=== PATIENT | male | born 1960 | race Caucasian/White ===

== ENCOUNTER 2020-08-19 09:25 | Outpatient (CLI) | payer OTHER ==
[~2020-08-19] VITALS: Ht 177.8 cm; Wt 102.2 kg
[2020-08-19 09:27] VITALS: BP 122/75
[2020-08-19] MEDS ORDERED: CASIRIVIMAB/IMDEVIMAB 1,200 MG in NS (IVPB) 250 ML IV ONE (09:45)
[2020-08-19] MEDS ORDERED: EPINEPHrine INJECTION 1 MG/ML AMP IM PRN (09:45)
[2020-08-19] MEDS ORDERED: diphenhydrAMINE 50 MG/ML INJ (BENADRYL) IV PRN (09:45)
[2020-08-19 10:35] VITALS: BP 133/75
== END 2020-08-19 11:15 | disposition home or self-care (01) ==
LOC: INFUSION 09:25
PROVIDERS: ATTEND Nurse Practitioner Family
DX: Z23 Encounter for immunization (principal); U07.1 COVID-19

== ENCOUNTER → 2020-11-01 | Outpatient (CLI) | payer OTHER ==
--- NOTE | 2020-11-01 12:41 | Diagnostic Imaging Report ---
INDICATION: Neck and left shoulder pain x 1 week. FINDINGS: Four views of the cervical spine were obtained which show normal height and alignment of the vertebral bodies. There is mild disc space narrowing at C4-C5 and C6-C7. There is mild disc space narrowing and spondylosis at C5-C6. There are mild degenerated facets. No fracture or other acute abnormality is seen. IMPRESSION: There are mild degenerative changes present with no acute abnormality seen. Dictated by: Dictated on workstation # [id number]
--- NOTE | 2020-11-01 12:44 | Diagnostic Imaging Report ---
INDICATION: Neck and back pain. Left arm weakness. FINDINGS: Three views of the thoracic spine show normal height and alignment of the vertebral bodies. The disc spaces are well-maintained. There is no significant spondylosis. There is no spinal canal encroachment. There is no fracture. IMPRESSION: No acute abnormality is seen. Dictated by: Dictated on workstation # [id number]
== END ==
LOC: RAD 11:54
PROVIDERS: ATTEND Family Medicine
DX: M47.892 Other spondylosis, cervical region (principal)
CPT/HCPCS: 72040; 72072

== ENCOUNTER 2022-10-18 08:53 | Outpatient (RCR) | payer OTHER | END 2022-10-19 | disposition home or self-care (01) | PROVIDERS: ATTEND Orthopaedic Surgery | DX: M23.303 Other meniscus derangements, unspecified medial meniscus, right knee (principal); Z98.890 Other specified postprocedural states ==

== ENCOUNTER 2022-11-15 08:02 | Outpatient (RCR) | payer OTHER | END 2022-11-18 | disposition home or self-care (01) | PROVIDERS: ATTEND Orthopaedic Surgery | DX: M23.303 Other meniscus derangements, unspecified medial meniscus, right knee (principal); Z98.890 Other specified postprocedural states ==

== ENCOUNTER 2022-11-21 08:41 | Outpatient (CLI) | payer OTHER | END 2022-11-21 09:05 | LOC: SLEEP 08:41 → RT 09:05 | PROVIDERS: ATTEND Otolaryngology Otolaryngology/Facial Plastic Surgery | DX: G47.30 Sleep apnea, unspecified (principal); R06.83 Snoring | CPT/HCPCS: G0399 ==